=== PATIENT | male | born 1970 | race Caucasian/White ===

== ENCOUNTER → 2019-01-05 13:09 | Outpatient (CLI) | payer OTHER ==
[~2019-01-05 13:09] MED LIST: DOXYCYCLINE HY100 M2 PO; LISINOPRIL10 MG PO; OMEPRAZOLE20 M1 PO; PENICILLIN VK250 MG PO; PRAVACHOL40 MG PO
[2019-01-11 10:03] VITALS: BMI 28.7
== END | disposition home or self-care (01) ==
LOC: D.LAB 13:09
PROVIDERS: ATTEND Emergency Medicine
DX: R50.81 Fever presenting with conditions classified elsewhere (principal)

== ENCOUNTER 2019-01-09 17:10 | Inpatient (IN) | payer OTHER ==
[~2019-01-09] VITALS: Ht 182.9 cm; Wt 96.2 kg
[2019-01-09] MEDS ORDERED: OMEPRAZOLE20 M1 PO (17:17)
[2019-01-09] MEDS ORDERED: PRAVACHOL40 MG PO (17:17)
[2019-01-09] MEDS ORDERED: DOXYCYCLINE HY100 M2 PO (17:17)
[2019-01-09] MEDS ORDERED: LISINOPRIL10 MG PO (17:18)
[2019-01-09 17:43] LABS: BASOPHILS 0.2 % (0-2); EOSINOPHILS 1.5 % (0-7); HEMATOCRIT 35.1 % (42.0-54.0); HEMOGLOBIN 12.4 g/dL (13.5-17.5); IMMATURE GRANULOCYTES 0.5 % (0-5); LYMPHOCYTES 14.7 % (15-50); MCH 29.8 pg (26.0-34.0); MCHC 35.3 g/dL (31.0-37.0); MCV 84.4 fL (80.0-100.0); MEAN PLATELET VOLUME 9.8 fL (7.4-10.4); MONOCYTES 11.8 % (2-11); NEUTROPHILS 71.3 % (40-80); PLATELET COUNT 219 10x3/uL (130-400); RBC 4.16 10x6/uL (4.20-6.10); RDW 12.8 % (11.5-14.5); WBC 11.9 10x3/uL (4.8-10.8)
[2019-01-09 17:57] LABS: ALBUMIN 2.9 g/dL (3.4-5.0); ALKALINE PHOSPHATASE 180 U/L (46-116); ALT (SGPT) 72 U/L (10-68); BILIRUBIN - TOTAL 0.28 mg/dL (0.2-1.3); CALC OSMOLALITY 273 mosm/kg (275-300); CALCIUM 8.6 mg/dL (8.5-10.1); CARBON DIOXIDE 23.3 mmol/L (21.0-32.0); CHLORIDE - SERUM 102 mmol/L (98-107); CREATININE - SERUM 1.1 mg/dL (0.6-1.3); GLUCOSE 128 mg/dL (74-106); POTASSIUM - SERUM 3.4 mmol/L (3.5-5.1); PROTEIN - SERUM 7.4 g/dL (6.4-8.2); SODIUM 136 mmol/L (136-145); UREA NITROGEN 12 mg/dL (7-18); eGFR NON AFRICAN AMERICAN 75 mL/min (90-120)
[2019-01-09 18:03] LABS: C-REACTIVE PROTEIN 14.2 mg/dL (0.0-0.9); CREATINE KINASE 52 UL (21-232)
[2019-01-09 18:04] LABS: APPEARANCE CLEAR (CLEAR); BILIRUBIN NEGATIVE (NEGATIVE); COLOR YELLOW (YELLOW); GLUCOSE NEGATIVE (NEGATIVE); KETONE NEGATIVE (NEGATIVE); NITRITE NEGATIVE (NEGATIVE); PROTEIN TRACE mg/dL (NEGATIVE); UROBILINOGEN NORMAL (NORMAL)
[2019-01-09 18:14] LABS: BACTERIA FEW /hpf (NONE SEEN); EPITHELIAL CELLS NSEEN /hpf (0-5); RED CELLS - URINE 0-5 /hpf (0-5); WHITE CELLS - URINE 0-5 /hpf (0-5)
[2019-01-09 18:56] VITALS: BP 119/73
[2019-01-09 20:26] VITALS: BP 134/81; BMI 28.8
[2019-01-10 00:36] VITALS: BP 167/92
[2019-01-10 04:00] VITALS: BP 127/77
[2019-01-10 06:05] LABS: BASOPHILS 0.2 % (0-2); EOSINOPHILS 1.5 % (0-7); HEMATOCRIT 33.2 % (42.0-54.0); HEMOGLOBIN 11.5 g/dL (13.5-17.5); IMMATURE GRANULOCYTES 0.4 % (0-5); LYMPHOCYTES 21.7 % (15-50); MCH 29.6 pg (26.0-34.0); MCHC 34.6 g/dL (31.0-37.0); MCV 85.6 fL (80.0-100.0); MEAN PLATELET VOLUME 10.4 fL (7.4-10.4); MONOCYTES 11.7 % (2-11); NEUTROPHILS 64.5 % (40-80); PLATELET COUNT 212 10x3/uL (130-400); RBC 3.88 10x6/uL (4.20-6.10); RDW 12.8 % (11.5-14.5); WBC 11.7 10x3/uL (4.8-10.8)
[2019-01-10 06:20] LABS: CALC OSMOLALITY 278 mosm/kg (275-300); CARBON DIOXIDE 25.6 mmol/L (21.0-32.0); CHLORIDE - SERUM 104 mmol/L (98-107); GLUCOSE 109 mg/dL (74-106); POTASSIUM - SERUM 4.3 mmol/L (3.5-5.1); SODIUM 140 mmol/L (136-145); UREA NITROGEN 10 mg/dL (7-18); eGFR NON AFRICAN AMERICAN 84 mL/min (90-120)
[2019-01-10 07:40] VITALS: BP 117/67
[2019-01-10 08:55] LABS: % SATURATION 13 % (15-55); IRON 24 ug/dl (35-150); TOTAL IRON BIND CAPACITY 174 ug/dl (260-445); UNSAT IRON BIND CAPACITY 150 ug/dl (150-375)
[2019-01-10 11:34] VITALS: BP 127/74
[2019-01-10 13:45] LABS: UDS - AMPHET NEGATIVE QUAL (NEGATIVE); UDS - BARB NEGATIVE QUAL (NEGATIVE); UDS - BENZO NEGATIVE QUAL (NEGATIVE); UDS - COCAINE NEGATIVE QUAL (NEGATIVE); UDS - OPIATE NEGATIVE QUAL (NEGATIVE); UDS - PCP NEGATIVE QUAL (NEGATIVE); UDS - THC NEGATIVE QUAL (NEGATIVE)
[2019-01-10 16:03] VITALS: BP 137/77
[2019-01-10 20:09] VITALS: BP 128/79
[2019-01-11 04:00] VITALS: BP 156/86
[2019-01-11 06:20] VITALS: BP 162/87
[2019-01-11 07:00] VITALS: BP 138/89
[2019-01-11 07:32] LABS: CALC OSMOLALITY 277 mosm/kg (275-300); CALCIUM 8.8 mg/dL (8.5-10.1); CARBON DIOXIDE 28.3 mmol/L (21.0-32.0); CHLORIDE - SERUM 103 mmol/L (98-107); CREATININE - SERUM 0.9 mg/dL (0.6-1.3); GLUCOSE 106 mg/dL (74-106); POTASSIUM - SERUM 4.1 mmol/L (3.5-5.1); SODIUM 140 mmol/L (136-145); UREA NITROGEN 10 mg/dL (7-18); eGFR NON AFRICAN AMERICAN > 90 mL/min (90-120)
[2019-01-11 07:57] LABS: BASOPHILS 0.1 % (0-2); EOSINOPHILS 1.5 % (0-7); HEMATOCRIT 33.9 % (42.0-54.0); HEMOGLOBIN 11.7 g/dL (13.5-17.5); IMMATURE GRANULOCYTES 0.9 % (0-5); LYMPHOCYTES 15.9 % (15-50); MCH 29.2 pg (26.0-34.0); MCHC 34.5 g/dL (31.0-37.0); MCV 84.5 fL (80.0-100.0); MEAN PLATELET VOLUME 10.2 fL (7.4-10.4); MONOCYTES 8.2 % (2-11); NEUTROPHILS 73.4 % (40-80); RBC 4.01 10x6/uL (4.20-6.10); RDW 12.7 % (11.5-14.5); WBC 14.2 10x3/uL (4.8-10.8)
[2019-01-11 08:01] LABS: PLATELET COUNT 255 10x3/uL (130-400)
[2019-01-11 10:03] VITALS: Ht 182.9 cm; Wt 96.2 kg
[2019-01-11 17:02] VITALS: BP 139/83
[2019-01-11 19:40] VITALS: BP 133/80
[2019-01-12 00:37] VITALS: BP 130/80
[2019-01-12 04:00] VITALS: BP 130/89
[2019-01-12 07:08] LABS: BASOPHILS 0.4 % (0-2); EOSINOPHILS 3.3 % (0-7); HEMATOCRIT 36.1 % (42.0-54.0); HEMOGLOBIN 12.6 g/dL (13.5-17.5); IMMATURE GRANULOCYTES 2.1 % (0-5); LYMPHOCYTES 21.1 % (15-50); MCH 29.4 pg (26.0-34.0); MCHC 34.9 g/dL (31.0-37.0); MCV 84.3 fL (80.0-100.0); MEAN PLATELET VOLUME 9.6 fL (7.4-10.4); MONOCYTES 9.1 % (2-11); PLATELET COUNT 288 10x3/uL (130-400); RBC 4.28 10x6/uL (4.20-6.10); RDW 12.8 % (11.5-14.5)
[2019-01-12 07:09] LABS: WBC 10.1 10x3/uL (4.8-10.8)
[2019-01-12 07:21] LABS: CALC OSMOLALITY 281 mosm/kg (275-300); CALCIUM 9.2 mg/dL (8.5-10.1); CARBON DIOXIDE 30.5 mmol/L (21.0-32.0); CHLORIDE - SERUM 103 mmol/L (98-107); GLUCOSE 109 mg/dL (74-106); POTASSIUM - SERUM 4.1 mmol/L (3.5-5.1); SODIUM 141 mmol/L (136-145); UREA NITROGEN 12 mg/dL (7-18); eGFR NON AFRICAN AMERICAN 84 mL/min (90-120)
[2019-01-12 08:00] VITALS: BP 133/81
[2019-01-12 11:52] VITALS: BP 117/72
[2019-01-12 11:57] VITALS: BP 117/72
--- NOTE | 2019-01-12 12:13 | MORECARE ---
CASE MANAGEMENT DISCHARGE SUMMARY PATIENT: ABDULAZIZ DE LA ROSA UNIT: [id number] ADM DATE: 01/10/19 AGE: 48 : 68 SEX: M ROOM/BED: D.1210 AUTHOR: NINFA LANDRY PHYSICIAN: REFERRING PHYSICIAN: SARIKA PAGAN MD DATE OF SERVICE: 01/12/19 Discharge Plan Patient Name: ABDULAZIZ DE LA ROSA Facility: [facility]:[place] : 1970 Planned Disposition: Home Anticipated Discharge Date: 01/12/19 Discharge Date: Expected LOS: 2 Initial Reviewer: [email or web address] Initial Review Date: 01/09/2019 Generated: 01/12/19 1:13 pm Patient Name: ABDULAZIZ DE LA ROSA Page [id number] at 1213 All edits/amendments must be made on the electronic document DICTATION DATE: 01/12/19 1213 WALLPAPERER: GUY 01/12/19 1213 RPT#: [id number] DC DATE: STATUS: ADM IN [facility] [address] [place] [address] END OF REPORT
--- NOTE | 2019-01-12 12:30 | MORECARE ---
CASE MANAGEMENT DISCHARGE SUMMARY PATIENT: ABDULAZIZ DE LA ROSA UNIT: [id number] ADM DATE: 01/10/19 AGE: 48 : 68 SEX: M ROOM/BED: D.1210 AUTHOR: GRISDOC PHYSICIAN: REFERRING PHYSICIAN: SAIRKA PAGAN MD DATE OF SERVICE: 01/12/19 Discharge Plan Patient Name: ABDULAZIZ DE LA ROSA Facility: [facility]:[place] : 1970 Planned Disposition: Home Anticipated Discharge Date: 01/12/19 Discharge Date: Expected LOS: 2 Initial Reviewer: [email or web address] Initial Review Date: 01/09/2019 Generated: 01/12/19 1:29 pm DCP- Discharge Planning Updated by [email or web address]: Cathy Crow on 01/12/19 11:[address] DC PLAN: Return home independently with . ANTICIPATED DC NEEDS: Denied known dc needs. CM met with patient to complete initial dc planning assessment. CM educated patient on the CM role and verbal consent given by patient to complete assessment. CM verified patient's address, phone number, and emergency contact phone numbers. Patient lives at home independently with his . At discharge patient plans to return and feels this is a safe discharge. CM discussed availability of home health, rehab services, and medical equipment. Patient is independent in the room and denied need for physical therapy. Patient denied known discharge needs at this time. Patient reports his or his mother will transport him home at time of discharge. CM will continue to follow and will assist as needed with dc plans/needs. Cathy Crow RN, [facility] DCPIA - Discharge Planning Initial Assessment Updated by [email or web address]: Cathy Crow on 01/12/19 12:21 pm * Is the patient Alert and Oriented? Yes * How many steps to enter\exit or inside your home? * PCP Dr. Jackson * Pharmacy [facility] on [address]/[facility] * Preadmission Environment Home with Family * ADLs Independent * Equipment None * List name and contact numbers for known caregivers / representatives who currently or will assist patient after discharge: [place] - - [phone] * Verbal permission to speak to the caregivers and representatives has been obtained from the patient. Yes * Community resources currently utilized None * Additional services required to return to the preadmission environment? No * Can the patient safely return to the preadmission environment? Yes * Has this patient been hospitalized within the prior 30 days at any hospital? No Last DP export: 01/12/19 11:13 am Patient Name: ABDULAZIZ DE LA ROSA Page [id number] at 1230 All edits/amendments must be made on the electronic document DICTATION DATE: 01/12/191228 SWEDGER: GUY 01/12/191228 RPT#: [id number] DC DATE: STATUS: ADM IN [facility] [address] [place] [address] END OF REPORT
[2019-01-12] MEDS ORDERED: PENICILLIN VK250 MG PO (14:41)
[2019-01-12 15:29] VITALS: BP 132/85
--- NOTE | 2019-01-13 09:51 | MORECARE ---
CASE MANAGEMENT DISCHARGE SUMMARY PATIENT: ABDULAZIZ DE LA ROSA UNIT: [id number] ADM DATE: 01/10/19 AGE: 48 : 68 SEX: M ROOM/BED: D.1210 AUTHOR: GRISDOC PHYSICIAN: REFERRING PHYSICIAN: SARIKA PAGAN MD DATE OF SERVICE: 01/13/19 Discharge Plan Patient Name: ABDULAZIZ DE LA ROSA Facility: [facility]:[place] : 1970 Planned Disposition: Home Anticipated Discharge Date: 01/12/19 Discharge Date: 01/12/2019 Expected LOS: 2 Initial Reviewer: [email or web address] Initial Review Date: 01/09/2019 Generated: 01/13/19 10:51 am DCP- Discharge Planning Updated by [email or web address]: Cathy Crow on 01/12/19 11:[address] DC PLAN: Return home independently with . ANTICIPATED DC NEEDS: Denied known dc needs. CM met with patient to complete initial dc planning assessment. CM educated patient on the CM role and verbal consent given by patient to complete assessment. CM verified patient's address, phone number, and emergency contact phone numbers. Patient lives at home independently with his . At discharge patient plans to return and feels this is a safe discharge. CM discussed availability of home health, rehab services, and medical equipment. Patient is independent in the room and denied need for physical therapy. Patient denied known discharge needs at this time. Patient reports his or his mother will transport him home at time of discharge. CM will continue to follow and will assist as needed with dc plans/needs. Cathy Crow RN, [facility] DCPIA - Discharge Planning Initial Assessment Updated by [email or web address]: Cathy Crow on 01/12/19 12:21 pm * Is the patient Alert and Oriented? Yes * How many steps to enter\exit or inside your home? * PCP Dr. Jackson * Pharmacy [facility] on [address]/[facility] * Preadmission Environment Home with Family * ADLs Independent * Equipment None * List name and contact numbers for known caregivers / representatives who currently or will assist patient after discharge: [place] Le - - [phone] * Verbal permission to speak to the caregivers and representatives has been obtained from the patient. Yes * Community resources currently utilized None * Additional services required to return to the preadmission environment? No * Can the patient safely return to the preadmission environment? Yes * Has this patient been hospitalized within the prior 30 days at any hospital? No Last DP export: 01/12/19 11:30 am Patient Name: ABDULAZIZ DE LA ROSA Page [id number] at 0951 All edits/amendments must be made on the electronic document DICTATION DATE: 01/13/19950 HYDROCRANE OPERATOR: GUY 01/13/19950 RPT#: [id number] DC DATE:01/12/19 STATUS: DIS IN [facility] [address] [place] [address] END OF REPORT
== END 2019-01-12 19:45 | disposition home or self-care (01) | DRG 153 ==
LOC: D.ER 17:10 → D.M3 19:03 → OBSVTIME 19:03 → D.M3 19:03
PROVIDERS: Family Medicine; ADMIT Internal Medicine Nephrology; ATTEND Internal Medicine Nephrology
DX: J03.90 Acute tonsillitis, unspecified (principal); F17.213 Nicotine dependence, cigarettes, with withdrawal; D64.9 Anemia, unspecified; E87.6 Hypokalemia; I10 Essential (primary) hypertension; E78.5 Hyperlipidemia, unspecified; K21.9 Gastro-esophageal reflux disease without esophagitis

== ENCOUNTER → 2019-06-07 18:19 | Outpatient (CLI) | payer OTHER ==
[2019-01-11 10:03] VITALS: BMI 28.7
== END | disposition home or self-care (01) ==
LOC: D.LABREF 18:19
PROVIDERS: ATTEND Urology
DX: R31.9 Hematuria, unspecified (principal)